=== PATIENT | female | born 1965 | race Hispanic/Latino ===

== ENCOUNTER 2017-04-29 12:00 | Outpatient (CLI) | payer OTHER ==
--- NOTE | 2017-04-29 13:55 | Cat Scan Report ---
CT scan of abdomen and pelvis without IV contrast: History: Right lower quadrant pain. Findings: Normal lung bases. No pleural effusion. Minimal pericardial effusion. Normal liver spleen and pancreas. Patient status post cholecystectomy. Patient status post left nephrectomy. Right kidney and ureter appears unremarkable. Normal bladder. Normal adrenals. No free intraperitoneal fluid or air. No evidence of adenopathy. Gaseous colon with moderate volume stool in colon. Diverticulosis colon. No evidence of diverticulitis. Impression: Diverticulosis colon. Additional findings as detailed above.
== END 2017-04-29 12:01 | disposition home or self-care (01) ==
LOC: CT 12:00
PROVIDERS: ATTEND Urology
DX: K57.30 Diverticulosis of large intestine without perforation or abscess without bleeding (principal); I31.3 Pericardial effusion (noninflammatory); Z90.49 Acquired absence of other specified parts of digestive tract; Z90.5 Acquired absence of kidney
CPT/HCPCS: 74176

== ENCOUNTER 2018-08-23 14:03 | Outpatient (CLI) | payer OTHER ==
--- NOTE | 2018-08-23 16:14 | Mammography Report ---
BILATERAL DIGITAL SCREENING MAMMOGRAM with CAD: 08/23/18 14:03:00 CLINICAL: Routine screening.History of a right benign biopsy. COMPARISON:04/22/16 FINDINGS: The breasts are almost entirely fatty.A right retroareolar biopsy clip and a stable right retroareolar asymmetry on the CC view. No mass, architectural distortion or suspicious calcifications. IMPRESSION: No mammographic evidence of malignancy. BI-RADS CATEGORY: 2 -- Benign RECOMMENDATION: Routine mammographic screening in one year. COMMENT: Patient follow-up letters are generated by our Real Time [employer] application.
== END 2018-08-23 14:04 | disposition home or self-care (01) ==
LOC: SPVWC 14:03
PROVIDERS: ATTEND Family Medicine
DX: Z12.31 Encounter for screening mammogram for malignant neoplasm of breast (principal)
CPT/HCPCS: 77067

== ENCOUNTER 2019-07-14 10:10 | Outpatient (CLI) | payer BC ==
--- NOTE | 2019-07-17 09:56 | Mammography Report ---
DIGITAL SCREENING MAMMOGRAM WITH CAD, 07/14/2019 INDICATION: Routine screening mammography. TECHNIQUE: Digital bilateral 2D mammography was obtained in the craniocaudal and mediolateral obliq ue projections. This examination was interpreted with the benefit of Computer-Aided Detection analysi s. COMPARISON: 08/23/2018 FINDINGS: Breast Density: The breasts are almost entirely fatty. There is no evidence of dominant mass, suspicious calcifications or architectural distortion in eithe r breast. IMPRESSION: No mammographic evidence of malignancy. Follow up recommendation: Routine yearly BI-RADS Category 1: Negative. A "normal" or negative report should not discourage follow up or biopsy of a clinically significant f inding. A written summary of these findings will be mailed to the patient. The patient will be entered into a mammography reporting system which will generate a reminder letter for the patient's next appointmen t at the appropriate interval. The [employer] recommends yearly mammograms starting at age 40 and continuing as l theodore as a woman is in good health. Breast MRI is recommended for women with an approximate 20-25% or greater lifetime risk of breast cancer, including women with a strong family history of breast or ova tania cancer or who have been treated for Hodgkin's disease. Signer Name: Zachery Mobley MD Signed: 07/17/2019 9:52 AM Workstation Name: [id number]
== END 2019-07-14 10:11 | disposition home or self-care (01) ==
LOC: SPVWC 10:10
PROVIDERS: ATTEND Family Medicine
DX: Z12.31 Encounter for screening mammogram for malignant neoplasm of breast (principal); N64.89 Other specified disorders of breast
CPT/HCPCS: 77067

== ENCOUNTER 2019-07-19 10:28 | Outpatient (CLI) | payer BC ==
--- NOTE | 2019-07-19 12:44 | Magnetic Resonance Report ---
MRI LUMBAR SPINE 07/19/2019 INDICATION / CLINICAL INFORMATION: R10.31 RIGHT LOWER QUAD PAIN. COMPARISON: None available. FINDINGS: GENERAL OBSERVATIONS: Unenhanced MR images of the lumbar spine were obtained. Slight straightening of lumbar lordosis is present patient positioned for this exam. Vertebral body a lignment is otherwise unremarkable. [id number] ANALYSIS: L5-S1: Mild diffuse disc bulging and facet degenerative changes. L4-5: Mild diffuse disc bulging and moderate facet degenerative changes. Small left lateral disc prot rusion,. No evidence of stenosis or nerve root compression. L3-4: Mild diffuse disc bulging. L2-3: Unremarkable. L1-2: Mild diffuse disc bulging and small left paracentral disc protrusion. There is no definite evid ence of nerve root compression. BONE MARROW: No significant abnormality. SPINAL CORD/CAUDA EQUINA: Unremarkable PARASPINAL SOFT TISSUES: No significant abnormality. 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 This has been previously noted. IMPRESSION: Mild degenerative disc and facet changes. Small left paracentral disc protrusion at L1-2. Signer Name: Braden Mccord MD Signed: 07/19/2019 12:40 PM Workstation Name: [id number]
== END 2019-07-19 10:29 | disposition home or self-care (01) ==
LOC: MRI 10:28
PROVIDERS: ATTEND Urology
DX: M47.816 Spondylosis without myelopathy or radiculopathy, lumbar region (principal); M47.817 Spondylosis without myelopathy or radiculopathy, lumbosacral region; M40.46 Postural lordosis, lumbar region; M51.27 Other intervertebral disc displacement, lumbosacral region; M51.26 Other intervertebral disc displacement, lumbar region; Z90.5 Acquired absence of kidney
CPT/HCPCS: 72148